=== PATIENT | male | born 1955 | race Two or more races ===

== ENCOUNTER 2023-02-07 00:26 | Emergency (ER) | payer OTHER ==
[~2023-02-07] VITALS: Ht 170.2 cm; Wt 93.4 kg
[2023-02-07] MEDS ORDERED: COZAAR100 MG PO (00:30)
== END 2023-02-07 15:14 | disposition home or self-care (01) ==
LOC: ER 00:26
DX: R10.13 Epigastric pain (principal); R41.0 Disorientation, unspecified; I10 Essential (primary) hypertension
CPT/HCPCS: 36415; 70450; 74019; 93005; 96365; 96372; 99284; J2250; J3490